=== PATIENT | female | born 1955 | race African-American/Black ===

== ENCOUNTER 2020-02-29 16:40 | Inpatient (IN) | payer MEDICARE, OTHER ==
[~2020-02-29] VITALS: Ht 167.6 cm; Wt 92.1 kg
--- NOTE | 2020-02-29 16:50 | NUR ---
suzi from [place] for generalized weakness, noted lethargy x today. Patient has eyes closed, open spontaneously, appears to be sleepy but she's verbally responsive. Breathing even and unlabored, no sob noted, placed on the monitor. Needs attended.
[2020-02-29] MEDS ORDERED: IV NS 0.9% 500 ML BAG IV ONE (17:00)
--- NOTE | 2020-02-29 17:00 | NUR ---
IV LINE ESTABLISHED, BLOOD DRAWN AND SENT TO LAB.
[2020-02-29] MEDS ORDERED: GABA300C PO (17:12)
[2020-02-29] MEDS ORDERED: ALBU18HF2 INH (17:12)
[2020-02-29] MEDS ORDERED: AMLO-61 PO (17:12)
[2020-02-29] MEDS ORDERED: FLUT1DIS3 INH (17:12)
[2020-02-29] MEDS ORDERED: PANT40TA49 PO (17:12)
[2020-02-29] MEDS ORDERED: HYDR-3972 PO (17:12)
[2020-02-29] MEDS ORDERED: INSU100I4 SQ (17:12)
[2020-02-29] MEDS ORDERED: CYCL10TA9 PO (17:12)
--- NOTE | 2020-02-29 17:15 | NUR ---
AMY FISHER AT [facility] FOR XRAY
[2020-02-29 17:29] LABS: BASOPHILS # (AUTO) 0.1 /CMM (0.0-0.2); BASOPHILS % (AUTO) 0.9 % (0.0-2.0); EOSINOPHILS % (AUTO) 3.4 % (0.0-6.0); HEMATOCRIT 40 % (33-45); HEMOGLOBIN 12.9 g/dL (11.5-14.8); LYMPHOCYTES # (AUTO) 3.2 /CMM (0.8-4.8); LYMPHOCYTES % (AUTO) 33.2 % (20.0-44.0); MEAN CORPUSCULAR HGB CONC 33 g/dl (31.0-36.0); MEAN CORPUSCULAR VOLUME 96 fL (82-100); MONOCYTES # (AUTO) 0.7 /CMM (0.1-1.30); MONOCYTES % (AUTO) 7.5 % (2.0-12.0); NEUTROPHILS # (AUTO) 5.3 /CMM (1.8-8.9); PLATELET COUNT (AUTO) 166 /CMM (150-450); RED BLOOD CELL COUNT(AUTO) 4.13 MIL/uL (4.0-5.2); WHITE BLOOD COUNT (AUTO) 9.6 K/uL (4.3-11.0)
[2020-02-29 17:37] LABS: CARBON DIOXIDE 25 mmol/L (21-32); CHLORIDE 102 mmol/L (98-107); GLUCOSE 135 mg/dL (74-106); POTASSIUM 3.9 mmol/L (3.5-5.1); SODIUM SERUM 137 mmol/L (136-145); UREA NITROGEN, BLOOD 30 mg/dL (7-18)
--- NOTE | 2020-02-29 18:15 | NUR ---
patient taken to radiology for ct.
[2020-02-29 18:21] LABS: THYROID STIMULATING HORMONE 0.507 uIU/mL (0.358-3.74)
[2020-02-29] MEDS ORDERED: IV NS 0.9% 1,000 ML IV ONE (18:30)
--- NOTE | 2020-02-29 18:49 | NUR ---
URINE SENT TO LAB.
--- NOTE | 2020-02-29 19:36 | NUR ---
[id number], RES# [id number] ETA TO FOLLOW
[2020-02-29] MEDS ORDERED: ACETAMINOPHEN 325 MG TABLET PO PRN (20:00)
--- NOTE | 2020-02-29 20:35 | NUR ---
DR. CARPENTER SPEAKING WITH SHIMON BRIGHT NP REGARDING ADMISSION
[2020-02-29 20:56] LABS: BILIRUBIN,URINE MODERATE (NEGATIVE); BLOOD, URINE Negative Ery/uL (NEGATIVE); COLOR,URINE YELLOW (YELLOW); LEUKOCYTE ESTERASE ,URINE Negative (NEGATIVE); NITRITE, URINE Negative (NEGATIVE); PROTEIN,URINE 100 mg/dl (NEGATIVE); UGLUCOSE Negative (NEGATIVE)
[2020-02-29] MEDS ORDERED: ONDANSETRON HCL/PF 4 MG/2 ML VIAL IVP PRN (21:00)
--- NOTE | 2020-02-29 21:49 | NUR ---
BED ASSIGNMENT 202
--- NOTE | 2020-02-29 21:52 | NUR ---
PATIENT UNABLE TO BE TAKEN UP TO ASSIGNED ROOM DUE TO STAFFING SHORTAGES, PER NURSING BOTTOM TURNER.
--- NOTE | 2020-02-29 22:06 | NUR ---
PATIENT IS AWAKE, AAOX4. NO SOB. BREATHING EVENLY AND UNLABORED ON ROOM AIR PT AGITATED, STATING, "DON'T TAKE MY PURSE FROM ME, GIMME BACK MY PURSE." NOTIFIED.
--- NOTE | 2020-02-29 22:14 | NUR ---
REPORT GIVEN TO ANDRES HOWARD FOR CLAIRE.
--- NOTE | 2020-02-29 22:25 | NUR ---
PATIENT IS AGITATED STATING, "GET THE FUCK AWAY FROM ME, I DO WHATEVER THE FUCK I WANT". REFUSED MEDICATION.
[2020-02-29] MEDS ORDERED: LORAZEPAM 1 MG TABLET PO ONE (22:30)
[2020-02-29] MEDS ORDERED: ALBUTEROL FS 2.5 MG/3 ML VIAL.NEB NEB PRN (22:30)
--- NOTE | 2020-02-29 22:35 | NUR ---
SHIMON BRIGHT AT BEDSIDE SPEAKING WITH PATIENT
[2020-02-29] MEDS ORDERED: LORAZEPAM INJ 2 MG/ML VIAL ONE (22:43)
[2020-02-29 22:45] LABS: BACTERIA,URINE Few /HPF (None Seen); RBC,URINE 0-2 /HPF (0-2); SQUAMOUS EPITHELIAL CELL,UR Rare /HPF (None Seen); WBC,URINE 0-2 /HPF (0-3)
[2020-02-29] MEDS ORDERED: LORAZEPAM INJ 2 MG/ML VIAL IV ONE (23:00)
--- NOTE | 2020-02-29 23:33 | NUR ---
LADY, FRIEND WANTS TO LEAVE PHONE NUMBER,
--- NOTE | 2020-02-29 23:55 | NUR ---
TELE/PMO PROJECT MANAGER NOTE Patient arrived at 2345 via gurney from ER. VS: BP 127/67 T97.8 P89 R18 [id number] Tele monitor reading sinus rhythm. Breathing even, clear, unlabored, on room air. No acute distress or SOB noted. No JVD. Tongue midline, no tracheal deviation. Mucous membranes moist, pink. PERRLA. CRP <3seconds. Brachial and pedal pulses 2+, symmetrical. Skin warm, pink, dry, intact. Abdomen large, round, soft, non-tender. BS active. Patient is incontinent. IV site L wrist 20g running NS @ 90ml/hr, no signs of redness or infiltration. Mild weakness noted in bilateral lower extremities. Able to moves toes, sensations intact. Bilateral upper extremities WNL. Machine Shop Helper strength 5+. Patient oriented to room. Admission documentation done. Bed in low position, wheels locked, side rails up x2, call light within reach.
[2020-03-01] VITALS: BP 127/67
[2020-03-01 01:56] VITALS: BP 127/67
[2020-03-01 04:00] VITALS: BP 156/94
[2020-03-01 06:39] LABS: BASOPHILS % (AUTO) 0.4 % (0.0-2.0); EOSINOPHILS % (AUTO) 2.4 % (0.0-6.0); HEMATOCRIT 37 % (33-45); HEMOGLOBIN 11.8 g/dL (11.5-14.8); LYMPHOCYTES # (AUTO) 2.2 /CMM (0.8-4.8); LYMPHOCYTES % (AUTO) 32.9 % (20.0-44.0); MEAN CORPUSCULAR HGB CONC 32 g/dl (31.0-36.0); MEAN CORPUSCULAR VOLUME 96 fL (82-100); MONOCYTES # (AUTO) 0.4 /CMM (0.1-1.30); MONOCYTES % (AUTO) 5.6 % (2.0-12.0); NEUTROPHILS % (AUTO) 58.7 % (43.0-81.0); PLATELET COUNT (AUTO) 126 /CMM (150-450); RED BLOOD CELL COUNT(AUTO) 3.85 MIL/uL (4.0-5.2); WHITE BLOOD COUNT (AUTO) 6.8 K/uL (4.3-11.0)
--- NOTE | 2020-03-01 06:41 | NUR ---
TELE/RN CLOSING NOTE Patient is A/O x3-4. Tele monitor reading sinus rhythm. Breathing even, clear, unlabored, on room air. No acute distress or SOB noted. Skin warm, pink, dry, intact. Patient is incontinent. IV site L wrist 20g running NS @ 90ml/hr, no signs of redness or infiltration. Mild weakness noted in bilateral lower extremities. Able to moves toes, sensations intact. Patient oriented to room. Bed in low position, wheels locked, side rails up x2, call light within reach.
[2020-03-01] MEDS ORDERED: IV NS 0.9% 1,000 ML IV PRN (07:00)
--- NOTE | 2020-03-01 07:40 | NUR ---
INDUSTRIAL AUTOMATION ENGINEER NOTES RECEIVED PT AWAKE, A/O X2-3, SITTING AT THE EDGE OF THE BED. PT CONCERNED OF GOING BACK HOME AND PT REFUSED TO HAVE THE TELEMONITORING EVEN RISK AND BENEFITS EXPLAINED. PT REFUSES HELP OR ANY ASSISTANCE WELL. PIV TO LAC G22 JUST PLACED BY HEAVY EQUIPMENT DIESEL MECHANIC, IVF NS RESUMED, FLUID INFUSING AND INTACT. PT KEP COMFORTABLE. PT'S BED KEPT LOW, LOCKED POSITION. WILL CONTINUE PLAN OF CARE.
[2020-03-01 07:48] LABS: C-REACTIVE PROTEIN 1.6 mg/dL (0.0-0.9)
--- NOTE | 2020-03-01 08:21 | NUR ---
RN NOTES PT REFUSES TO BE HELPED, REFUSED VITALS. INSISTING TO FIND HER SHOES SO SHE COULD GO HOME. PT PREFERS TO SLIDE HER SELF ON THE FLOOR TO GET AROUND THE BED AND LOOK ON HER SHOES. PT STILL INSIST TO REFUSE HELP AT THIS TIME.
--- NOTE | 2020-03-01 08:35 | NUR ---
RN NOTES NOTIFIED HOSPITALIST/CC REGARDING PT'S CURRENT BEHAVIOR. PT CRAWLING ON THE FLOOR, CURSING AT STAFFS AND INSISTING WANTS TO GO HOME.
[2020-03-01] MEDS ORDERED: LORAZEPAM INJ 2 MG/ML VIAL IM ONE (08:40)
[2020-03-01] MEDS: PANTOPRAZOLE 40 MG TABLET.DR PO SCH (09:00)
[2020-03-01] MEDS: APIXABAN 2.5 MG TABLET PO SCH ×2 (09:00→16:20)
--- NOTE | 2020-03-01 09:30 | NUR ---
RN NOTES PAGED DR. MARTÍNEZ FOR PSYCH EVAL.
[2020-03-01 10:33] LABS: ALANINE AMINOTRANSFERASE 25 U/L (12-78); ALBUMIN 2.8 g/dL (3.4-5.0); ALKALINE PHOSPHATASE 63 U/L (46-116); ASPARTATE AMINOTRANSFERASE 28 U/L (15-37); BILIRUBIN,TOTAL 0.2 mg/dL (0.2-1.0); CALCIUM, SERUM 8.7 mg/dL (8.5-10.1); CARBON DIOXIDE 23 mmol/L (21-32); CHLORIDE 104 mmol/L (98-107); CREATININE 1.5 mg/dL (0.6-1.3); GLUCOSE 217 mg/dL (74-106); MAGNESIUM 2.5 mg/dL (1.8-2.4); PHOSPHORUS 3.5 mg/dL (2.5-4.9); POTASSIUM 4.4 mmol/L (3.5-5.1); SODIUM SERUM 137 mmol/L (136-145); TOTAL PROTEIN, SERUM 7.6 g/dL (6.4-8.2); UREA NITROGEN, BLOOD 25 mg/dL (7-18)
[2020-03-01 10:39] LABS: CHOLESTEROL 145 mg/dL (<200); HDL CHOLESTEROL 57 mg/dL (40-60); LDL 76 mg/dL (0-99); TRIGLYCERIDES 67 mg/dL (30-150)
--- NOTE | 2020-03-01 10:58 | NUR ---
RN NOTES PT BANGING THE BATHROOM DOOR REPEATEDLY. AND THREW TRASH BIN TO STAFF MEMBER WHILE INSIDE HER ROOM.
--- NOTE | 2020-03-01 11:01 | NUR ---
RN NOTES RECEIVED CALL FROM CADEN FROM PSYCH. VERIFIED PT IS SUPPOSED TO BE SEEN BY DR. HARRISON YESTERDAY, BUT DR BILL IS COVERING TODAY. CADEN STATED SHE'LL FOLLOW UP WITH DR BILL FOR THIS PT.
[2020-03-01] MEDS ORDERED: DEXTROSE 50%-WATER 50 ML DISP.SYRIN IV PRN (11:30)
[2020-03-01] MEDS: BLOOD SUGAR DIAGNOSTIC 1 EACH STRIP IN SCH ×3 (12:07→22:00)
[2020-03-01] MEDS: INSULIN REGULAR, HUMAN 100 UNIT/ML 3 ML VIAL SQ PRN ×2 (12:08→16:36)
--- NOTE | 2020-03-01 12:41 | NUR ---
RN NOTES SEEN AND EVALUATED BY DR. MARTÍNEZ. ORDERS PLACED.
[2020-03-01] MEDS ORDERED: OLANZAPINE 10 MG VIAL IM ONE (13:00)
[2020-03-01] MEDS ORDERED: LORAZEPAM 1 MG TABLET PO PRN (13:00)
[2020-03-01] MEDS ORDERED: ALBUTEROL 17GM INHALER IH PRN (14:30)
[2020-03-01] MEDS: OLANZAPINE ZYDIS 5 MG TAB.RAPDIS PO SCH ×2 (15:00→16:18)
[2020-03-01] MEDS: GABAPENTIN 300 MG CAPSULE PO SCH ×2 (15:01→16:17)
--- NOTE | 2020-03-01 15:23 | NUR ---
RN NOTES RECEIVED CALL FROM PERSONAL YURI/EMI , INFORMED HEBER/YURI WELL TO CALL AND GET INFORMATION REGARDING PT WELL.
--- NOTE | 2020-03-01 17:48 | NUR ---
RN NOTES PT APPEARS CALM, BACK ON TELEMONITOR, SR WITH BBB, HR 85.
--- NOTE | 2020-03-01 19:48 | NUR ---
COMPUTER HELP DESK REPRESENTATIVE NOTES PT AWAKE, A/O X2-3, CALM, ASLEEP. TOLERATING RA, WITH NO ACUTE RESPIRATORY DISTRESS. ON TELEMONITORING SR 80. PIV TO LAC G22, IVF NS AT 50 ML/HR, FLUID INFUSING AND INTACT. NEEDS ATTENDED. PT KEPT COMFORTABLE. PT'S BED KEPT LOW, LOCKED POSITION. CALL LIGHT KEPT WITHIN REACH. ENDORSED TO SPEECH THERAPIST EARLY INTERVENTION.
--- NOTE | 2020-03-01 19:55 | NUR ---
HOSPITAL RECEIVING CLERK NOTES PT AWAKE, A/O X2-3, CALM, ASLEEP. TOLERATING RA, WITH NO ACUTE RESPIRATORY DISTRESS. ON TELEMONITORING SR 80s. PIV TO LAC G22, IVF NS AT 90 ML/HR, FLUID INFUSING AND INTACT. ALL NEEDS ANTICIPATED. KEPT COMFORTABLE. SAFETY MEASURES IN PLACED. PT'S BED KEPT LOW, LOCKED POSITION. CALL LIGHT KEPT WITHIN REACH. ASPIRATION PRECAUTION EMPHASIZED. WILL CONTINUE TO MONITOR ACCORDINGLY.
[2020-03-01 20:00] VITALS: BP 188/112
--- NOTE | 2020-03-01 22:30 | NUR ---
RN NOTES PATIENT REFUSED ACCU CHECK, PATIENT IS COMBATIVE, HITTING STAFF.
--- NOTE | 2020-03-01 22:39 | NUR ---
RN NOTES PATIENT IS RESTLESS, COMBATIVE, KICKING, SCREAMING, PULLING PERIPHERAL IV TUBING, HITTING STAFF. INFORMED KAILA ROWELL WITH ORDERS FOR BILATERAL SOFT WRIST RESTRAINTS, TO GIVE ATIVAN 2MG IV ONCE AND ATIVAN 1MG IV EVERY 8 HOURS PRN. ORDERS NOTED AND CARRIED OUT.
[2020-03-01] MEDS ORDERED: LORAZEPAM INJ 2 MG/ML VIAL IV PRN (23:00)
[2020-03-01] MEDS: IV NS 0.9% 1,000 ML IV PRN (23:04)
[2020-03-02 00:39] VITALS: BP 166/97
[2020-03-02 04:00] VITALS: BP 178/108
--- NOTE | 2020-03-02 06:18 | NUR ---
STAFF VETERINARIAN NOTES ALL NEEDS ATTENDED AND MET. ABLE TO REST AND SLEEP JUST NOW, AWAKE THROUGHOUT THE NIGHT, BILATERAL SOFT WRIST RESTRAINTS IN PLACE, CHECKED AND ASSESSED FOR ADEQUATE CIRCULATION, PERIPHERAL IV ACCESS INTACT AND PATENT, REPOSITIONED FOR COMFORT. SAFETY MEASURE EMPHASIZED. CALL LIGHT WITHIN EASY REACH. KEEP CLEAN WARM AND DRY, CALM AT THIS TIME. WILL ENDORSE TO AM NURSE FOR CONTINUITY OF CARE.
[2020-03-02 07:22] LABS: BASOPHILS % (AUTO) 0.8 % (0.0-2.0); EOSINOPHILS % (AUTO) 4.7 % (0.0-6.0); HEMATOCRIT 39 % (33-45); HEMOGLOBIN 12.5 g/dL (11.5-14.8); LYMPHOCYTES # (AUTO) 1.6 /CMM (0.8-4.8); MEAN CORPUSCULAR HGB CONC 33 g/dl (31.0-36.0); MEAN CORPUSCULAR VOLUME 95 fL (82-100); MONOCYTES # (AUTO) 0.5 /CMM (0.1-1.30); MONOCYTES % (AUTO) 10.4 % (2.0-12.0); NEUTROPHILS # (AUTO) 2.7 /CMM (1.8-8.9); NEUTROPHILS % (AUTO) 53.1 % (43.0-81.0); PLATELET COUNT (AUTO) 119 /CMM (150-450); RED BLOOD CELL COUNT(AUTO) 4.06 MIL/uL (4.0-5.2); WHITE BLOOD COUNT (AUTO) 5.1 K/uL (4.3-11.0)
[2020-03-02] MEDS: BLOOD SUGAR DIAGNOSTIC 1 EACH STRIP IN SCH ×4 (07:29→21:34)
[2020-03-02 08:00] VITALS: BP 168/99
--- NOTE | 2020-03-02 08:00 | NUR ---
RN Opening Note Received patient in bed, AO x 2 -3 confuse, able to responds all stimuli, does no appears pain or discomfort. Respiratory even and unlabored on room air, no distress or SOB observed. Skin is warm to touch keep clean/dry, intact IV site on left AC g 22 running NS at 75ml/hr, pt is on bilateral soft restraint for safety. Kept locked bed with elevated HOB for ensure airway and aspiration precaution and lowest position for safety. Call light within reach, will continue to monitor.
[2020-03-02] MEDS: PANTOPRAZOLE 40 MG TABLET.DR PO SCH (08:07)
[2020-03-02] MEDS: GABAPENTIN 300 MG CAPSULE PO SCH ×3 (08:07→16:57)
[2020-03-02] MEDS: OLANZAPINE ZYDIS 5 MG TAB.RAPDIS PO SCH ×3 (08:07→16:57)
[2020-03-02 08:08] LABS: ALANINE AMINOTRANSFERASE 29 U/L (12-78); ALBUMIN 3.1 g/dL (3.4-5.0); ALKALINE PHOSPHATASE 67 U/L (46-116); ASPARTATE AMINOTRANSFERASE 34 U/L (15-37); BILIRUBIN,TOTAL 0.3 mg/dL (0.2-1.0); CALCIUM, SERUM 9.2 mg/dL (8.5-10.1); CARBON DIOXIDE 24 mmol/L (21-32); CHLORIDE 104 mmol/L (98-107); GLUCOSE 216 mg/dL (74-106); MAGNESIUM 2.1 mg/dL (1.8-2.4); PHOSPHORUS 2.3 mg/dL (2.5-4.9); POTASSIUM 4.7 mmol/L (3.5-5.1); SODIUM SERUM 137 mmol/L (136-145); TOTAL PROTEIN, SERUM 8.2 g/dL (6.4-8.2); UREA NITROGEN, BLOOD 15 mg/dL (7-18)
[2020-03-02] MEDS: APIXABAN 2.5 MG TABLET PO SCH ×2 (08:09→17:20)
[2020-03-02] MEDS: LORAZEPAM INJ 2 MG/ML VIAL IV PRN ×2 (10:33→23:47)
[2020-03-02] MEDS: IV NS 0.9% 1,000 ML IV PRN ×2 (12:09→23:18)
[2020-03-02] MEDS: AMLODIPINE BESYLATE 5 MG TABLET PO SCH (13:25)
[2020-03-02] MEDS: BENAZEPRIL HCL 20 MG TABLET PO SCH (13:25)
[2020-03-02] MEDS ORDERED: LORAZEPAM INJ 2 MG/ML VIAL IM ONE (13:30)
[2020-03-02] MEDS ORDERED: OLANZAPINE 10 MG VIAL IM ONE (13:30)
[2020-03-02] MEDS ORDERED: K PHOS NEUTRAL 250 MG TABLET PO ONE (16:00)
[2020-03-02] MEDS: INSULIN REGULAR, HUMAN 100 UNIT/ML 3 ML VIAL SQ PRN ×2 (17:00→21:52)
--- NOTE | 2020-03-02 18:00 | NUR ---
Patient notated bp 180/91 HR 92, received new order Hydralazine 10 mg po q 6. Noted and carry out.
[2020-03-02] MEDS ORDERED: hydrALAZINE HCL 10 MG TABLET PO PRN (18:30)
--- NOTE | 2020-03-02 18:30 | NUR ---
RN Closing note Patient in bed resting, noticed confuse and noticed attempted out of bed, still on restraint. Pt does no appears discomfort, skin is warm to touch keep clean/dry. Respiratory even and unlabored on room air O2sat 95%, no sob or distress observed. Kept locked bed and elevated HOB for ensure airway and aspiration precaution, and lowest position for safety, bed alarm is on at all the times, call light within reach, will endorse night filler.
--- NOTE | 2020-03-02 19:30 | NUR ---
RN NOTES: RECEIVED ENDORSEMENT FROM MORNING SHIFT,ALL PERTINENT INFORMATION ACKNOWLEDGE,WILL CONTINUE TO MONITOR AND ASSESS THROUGHOUT THE SHIFT AND WILL CARRY OUT ANY MD ORDER SCHEDULED. -AT 1999 REPORT GIVEN TO KIMMY/ANITA FOR CLAIRE; RELAY ASSOCIATE MADE AWARE.
--- NOTE | 2020-03-02 19:30 | NUR ---
RN OPENING NOTES Received patient asleep, A/O x3. On RA, no respiratory distress noted, saturating well. No s/sx of discomfort noted. On fall and aspiration precautions noted. With bilateral soft wrist restraints, no s/sx of injury noted. Kept on bed clean, dry and comfortable. Will continue to monitor accordingly.
[2020-03-02 20:00] VITALS: BP 160/89
[2020-03-02] MEDS: DOXYCYCLINE HYCLATE (100 MG) 100 MG TABLET PO SCH (21:34)
[2020-03-03] VITALS: BP 173/99
[2020-03-03 04:00] VITALS: BP 152/85
[2020-03-03] MEDS: LORAZEPAM INJ 2 MG/ML VIAL IV PRN (06:05)
[2020-03-03 06:16] LABS: BASOPHILS % (AUTO) 0.7 % (0.0-2.0); EOSINOPHILS % (AUTO) 4.6 % (0.0-6.0); HEMATOCRIT 37 % (33-45); HEMOGLOBIN 12.1 g/dL (11.5-14.8); LYMPHOCYTES # (AUTO) 1.7 /CMM (0.8-4.8); LYMPHOCYTES % (AUTO) 27.4 % (20.0-44.0); MEAN CORPUSCULAR HGB CONC 33 g/dl (31.0-36.0); MEAN CORPUSCULAR VOLUME 95 fL (82-100); MONOCYTES # (AUTO) 0.6 /CMM (0.1-1.30); MONOCYTES % (AUTO) 9.1 % (2.0-12.0); NEUTROPHILS # (AUTO) 3.5 /CMM (1.8-8.9); NEUTROPHILS % (AUTO) 58.2 % (43.0-81.0); PLATELET COUNT (AUTO) 124 /CMM (150-450); RED BLOOD CELL COUNT(AUTO) 3.92 MIL/uL (4.0-5.2); WHITE BLOOD COUNT (AUTO) 6.1 K/uL (4.3-11.0)
[2020-03-03 06:18] LABS: CALCIUM, SERUM 8.6 mg/dL (8.5-10.1); CREATININE 0.9 mg/dL (0.6-1.3); MAGNESIUM 1.7 mg/dL (1.8-2.4); PHOSPHORUS 2.7 mg/dL (2.5-4.9); POTASSIUM 4.3 mmol/L (3.5-5.1)
[2020-03-03] MEDS: INSULIN REGULAR, HUMAN 100 UNIT/ML 3 ML VIAL SQ PRN ×4 (06:20→21:28)
--- NOTE | 2020-03-03 07:15 | NUR ---
RN CLOSING NOTES Pt on bed comfortable no new complaints made. Medicated for agitation/combative, noted effective. Kept on bed clean, dry and comfortable. On fall and aspiration precautions. Endorsed.
--- NOTE | 2020-03-03 07:30 | NUR ---
NAVIGATION TEACHER NOTES PT IN BED, RESTING, ALERT AND VERBALLY RESPONSIVE, NO SIGN OF PAIN, NOT IN DISTRESS, TOLERATING ROOM AIR, WITH EPISODES OF CONFUSION, OCCASIONAL YELLING, NEEDS ATTENDED, ASSISTED WITH MEALS, SAFETY PRECAUTIONS OBSERVED.
[2020-03-03] MEDS: BLOOD SUGAR DIAGNOSTIC 1 EACH STRIP IN SCH ×4 (07:33→21:26)
[2020-03-03 08:00] VITALS: BP 172/101
[2020-03-03] MEDS: GABAPENTIN 300 MG CAPSULE PO SCH ×3 (08:18→16:09)
[2020-03-03] MEDS: DOXYCYCLINE HYCLATE (100 MG) 100 MG TABLET PO SCH ×2 (08:18→21:10)
[2020-03-03] MEDS: BENAZEPRIL HCL 20 MG TABLET PO SCH (08:19)
[2020-03-03] MEDS: AMLODIPINE BESYLATE 5 MG TABLET PO SCH (08:19)
[2020-03-03] MEDS: OLANZAPINE ZYDIS 5 MG TAB.RAPDIS PO SCH ×3 (08:20→16:09)
[2020-03-03] MEDS: PANTOPRAZOLE 40 MG TABLET.DR PO SCH (08:20)
[2020-03-03] MEDS: APIXABAN 2.5 MG TABLET PO SCH ×2 (08:21→16:11)
[2020-03-03] MEDS: Magnesium 1GM/D5W 100ML PREMIX 100 ML IV SCH ×2 (11:19→12:28)
[2020-03-03] MEDS: NITROGLYCERIN 30 GM TUBE TP SCH ×2 (11:40→21:11)
[2020-03-03] MEDS: hydrALAZINE HCL 50 MG TABLET PO SCH ×3 (11:40→17:00)
[2020-03-03 12:00] VITALS: BP 158/100
--- NOTE | 2020-03-03 13:00 | NUR ---
STOCK PARTS INSPECTOR NOTES PT IN BED, RESTING, ALERT TO SELF, VERBALLY RESPONSIVE, NOT IN DISTRESS, TOLERATES ROOM AIR, WITH EPISODES OF CONFUSION AND YELLING, PT STILL TRYING TO PULL OUT IV LINES AND TUBES, SAFETY PRECAUTIONS OBSERVED.
[2020-03-03] MEDS ORDERED: LORAZEPAM INJ 2 MG/ML VIAL IM PRN (15:30)
[2020-03-03 16:00] VITALS: BP 126/99
--- NOTE | 2020-03-03 18:43 | NUR ---
MICROSOFT DYNAMICS AX CONSULTANT NOTES PT IN BED, AWAKE, ALERT TO SELF, WITH CONFUSION, WITH EPISODES OF YELLING AND MUMBLING TO SELF, SEEN BY DR. MENDES, IV ACCESS INFILTRATED, PT REFUSED IV REINSERTION AND TELE BOX MONITORING, DR. MENDES INFORMED, PM MEDS GIVEN ORDERED, ASSISTED WITH DINNER, SAFETY PRECAUTIONS OBSERVED.
--- NOTE | 2020-03-03 19:30 | NUR ---
BEEKEEPER FARMER OPENING NOTE RECEIVED PATIENT ON ISOLATION TO R/O COVID19. PATIENT IN BED. A/O 2, CONFUSED. TOLERATING ROOM AIR. RESPIRATIONS ARE EVEN AND UNLABORED. NO S/S SOB NOTED. NO C/O PAIN AT THIS TIME. EXTERNAL TELE MONITOR READS SINUS TACHY HR 111. IN NO APPARENT DISTRESS. NO IV ACCESS, MD AWARE PER DAY RN. PATIENT IS ON BILATERAL SOFT WRIST RESTRAINTS, 2 FINGER BREATHS OF ROOM BETWEEN SKIN AND RESTRAINT, NO REDNESS. BED IS LOW AND LOCKED, HOB ELEVATED IN SEMI FOWLERS, SIDE RAILS UP X2, CALL LIGHT WITHIN REACH. WILL CONTINUE TO MONITOR.
[2020-03-03 20:00] VITALS: BP 168/96
--- NOTE | 2020-03-03 20:43 | NUR ---
PUMP ERECTOR HELPER NOTE INFORMED DR. SHIMON BRIGHT THAT PATIENT HAS TEMP 99 BUT NO TYLENOL ON MEDICATION LIST. MD TELEPHONE ORDER TYLENOL 650MG Q4HR PRN. ORDER READ BACK, NOTED AND CARRIED OUT. WILL CONTINUE TO MONITOR.
[2020-03-03] MEDS ORDERED: ACETAMINOPHEN 325 MG TABLET PO PRN (21:00)
--- NOTE | 2020-03-03 21:31 | NUR ---
telephone solicitor note administered prn tylenol 650mg for temp 99.0. will continue to monitor.
[2020-03-04] VITALS: BP 150/62
[2020-03-04 04:00] VITALS: BP_SYST 169; BP_SYST 174; BP_DIAS 86; BP_DIAS 94
--- NOTE | 2020-03-04 04:30 | NUR ---
PURIFICATION OPERATOR HELPER NOTE TRIED TO OBTAIN ORTHOSTATIC VITALS, WAS ABLE TO OBTAIN SITTING AND LAYING VITAL SIGNS, PATIENT DID NOT WANT TO STAND. INSERTED ON VITALS SIGN FLOW SHEET.
--- NOTE | 2020-03-04 04:54 | NUR ---
telephoto installer note informed dr. jordana lundy that patients bp is 174/94 hr 98 laying down, 169/86 hr 108 when sitting. patient is already on Apresoline 100mg TIB and nitro ointment q12 hrs. telephone ordered clonidine 0.1mg q8hr prn po, systolic bp greater than 160. order read back, noted and carried out.
[2020-03-04] MEDS ORDERED: CLONIDINE HCL 0.1 MG TABLET PO PRN (05:00)
[2020-03-04] MEDS: BLOOD SUGAR DIAGNOSTIC 1 EACH STRIP IN SCH (06:10)
[2020-03-04] MEDS: INSULIN REGULAR, HUMAN 100 UNIT/ML 3 ML VIAL SQ PRN ×2 (06:20→17:32)
--- NOTE | 2020-03-04 06:32 | NUR ---
MEDICAL OFFICE TECHNOLOGIST CLOSING NOTE ON ISOLATION TO R/O COVID19. RESTING IN BED. A/OX2, PERIODS OF CONFUSION. TOLERATING ROOM AIR.NO RESP DISTRESS NOTED. NO C/O PAIN THROUGHOUT SHIFT. MANAGED SLIGHT TEMP WITH TYLENOL. TEMP NOW IS 98.4. EXTERNAL TELE MONITOR READS SINUS TACHY HR 109. NO DISTRESS. NO IV ACCESS. PATIENT REMAINS ON BILATERAL SOFT WRIST RESTRAINTS, GOOD CAP REFILL, NO REDNESS NOTED. BED REMAINS LOW AND LOCKED, HOB ELEVATED IN SEMI FOWLERS, SIDE RAILS UP X3, CALL LIGHT WITHIN REACH. WILL ENDORSE TO NEXT SHIFT.
--- NOTE | 2020-03-04 07:35 | NUR ---
GLOBAL IMPLEMENTATION MANAGER NOTES PATIENT RECEIVED IN BED, ALERT AND ORIENTED X 2, ON ROOM AIR WITH NO SIGNS OF RESPIRATORY DISTRESS WITH EVEN NON-LABORED BREATHING, AND NO SOB NOTED. PATIENT ON TITLE I MATH TUTOR. SINUS TACH, 120. PATIENT PRESENTING WITH NO PAIN OR DISCOMFORT AT THIS TIME. NO IV ACCESS, MD MADE AWARE STATED BY NIGHTSHIFT. PATIENT HAS BILATERAL SOFT WRIST RESTRAINTS IN PLACE WITH ADEQUATE CIRCULATION, VISUAL CHECKS DONE Q 15 MINS. PATIENT PRESENTING WITH NO PAIN OR DISCOMFORT AT THIS TIME. ISOLATION PRECAUTIONS REMAINING, DUE TO COVID-19. SAFETY PRECAUTIONS IMPLEMENTED WITH BED LOCKED, BED IN THE LOWEST POSITION, BED ALARM ON, BILATERAL SIDE RAILS UP AND CALL LIGHT WITHIN EASY REACH OF THE PATIENT. WILL CONTINUE TO MONITOR PATIENT.
[2020-03-04 08:00] VITALS: BP 128/82
[2020-03-04] MEDS: DOXYCYCLINE HYCLATE (100 MG) 100 MG TABLET PO SCH ×2 (08:45→21:00)
[2020-03-04] MEDS: GABAPENTIN 300 MG CAPSULE PO SCH ×3 (08:45→17:18)
[2020-03-04] MEDS: OLANZAPINE ZYDIS 5 MG TAB.RAPDIS PO SCH ×3 (08:45→17:18)
[2020-03-04] MEDS: PANTOPRAZOLE 40 MG TABLET.DR PO SCH (08:46)
[2020-03-04] MEDS: NITROGLYCERIN 30 GM TUBE TP SCH ×2 (08:47→21:00)
[2020-03-04] MEDS: APIXABAN 2.5 MG TABLET PO SCH ×2 (08:48→17:19)
[2020-03-04] MEDS: AMLODIPINE BESYLATE 5 MG TABLET PO SCH (08:48)
[2020-03-04] MEDS: BENAZEPRIL HCL 20 MG TABLET PO SCH (10:11)
[2020-03-04] MEDS: hydrALAZINE HCL 50 MG TABLET PO SCH ×3 (10:12→17:00)
--- NOTE | 2020-03-04 11:30 | NUR ---
SALES MANAGER NOTES PATIENT REFUSED AM LAB DRAW, INFORMED JING MENDES, HOSPITALIST. WILL CONTINUE TO MONITOR PATIENT.
--- NOTE | 2020-03-04 12:00 | NUR ---
INSOLE AND HEEL STIFFENER NOTES TRANSFERRED PATIENT TO [address] [place] [address] ROOM 322-1. PATIENT ON ROOM AIR WITH NO SIGNS OF RESPIRATORY DISTRESS WITH EVEN NON-LABORED BREATHING. PATIENT PRESENTING WITH NO PAIN OR DISCOMFORT AT THIS TIME. TRANSFERRED PATIENT VIA ACLS PROTOCOL, VIA BED. ENDORSED TO RN FOR CONTINUATION OF PLAN OF CARE.
--- NOTE | 2020-03-04 12:00 | NUR ---
RN OPENING NOTE THE PATIENT IS RECEIVED ON A BED FROM MS2. PATIENT IS ALERT AND ORIENTED X2. DENIES PAIN. IN ROOM AIR AND DENIES SOB. RESPIRATION REGULAR AND UNLABORED. TELE BOX READING IS SINUS TACHYCARDIA 130. THE PATIENT DENIES ANY DISTRESS. PATIENT WITH NO IV ACCESS AND PER REPORTING NURSE FREDY ROWELL IS AWARE. PROVIDED ORIENTATION TO THE ROOM/UNIT AND THE PATIENT VERBALIZED UNDERSTANDING. BED LOW AND LOCKED. SIDE RAILS UP X3. CALL LIGHT WITHIN REACH. WILL CONTINUE TO MONITOR.
[2020-03-04] MEDS ORDERED: DEXTROSE 50%-WATER 50 ML DISP.SYRIN IV PRN (12:30)
[2020-03-04] MEDS ORDERED: *INSULIN REGULAR(HUMULIN R)HUM 100 UNIT/ML VIAL SQ PRN (12:30)
[2020-03-04] MEDS: METOPROLOL TARTRATE 50 MG TABLET PO SCH ×2 (13:34→17:36)
--- NOTE | 2020-03-04 15:02 | NUR ---
RN DISCONTINUED RESTRAINS ASSESSED THE PATIENT AND NOTED THAT THERE IS NO NEED FOR RESTRAINS. YING MENDES IS MADE AWARE AND RECEIVED AN ORDER TO DISCONTINUE BILATERAL SOFT-WRIST RESTRAINS. THE ORDER IS NOTED AND CARRIED OUT.
[2020-03-04 17:00] VITALS: BP 106/57
--- NOTE | 2020-03-04 17:11 | NUR ---
RN ELEVATED BLOOD SUGAR BLOOD SUGAR CHECK DONE AND NOTED BLOOD SUGAR OF 407. PER POLICY REJECTED IN ORDER TO RECHECK.
--- NOTE | 2020-03-04 17:28 | NUR ---
RN BLOOD SUGAR BLOOD SUGAR RECHECK DONE AT 1728 BECAUSE THE PATIENT WAS REFUSING PRIOR 1728. SO. BLOOD SUGAR AR 1728 NOTED TO BE 404 AND GAVE 15 UNITS REGULAR INSULIN PER ORDER AND CONTACTED EVANGELISTA MENDES.
[2020-03-04] MEDS ORDERED: ENOXAPARIN SODIUM 40 MG/0.4 ML DISP.SYRIN SQ SCH (17:30)
[2020-03-04] MEDS: BLOOD SUGAR DIAGNOSTIC 1 EACH STRIP VI SCH ×2 (17:32→21:08)
--- NOTE | 2020-03-04 17:49 | NUR ---
RN BLOOD SUGAR 1749 BLOOD SUGAR 392 AFTER GIVING 15 UNITS OF REGULAR INSULIN. RECEIVED A CALL FROM LAB REPORTING BLOOD GLUCOSE LEVEL OF 442. EVANGELISTA MENDES IS MADE AWARE. X RAY TECH PLACED A NEW ORDER OF METFORMIN. WILL ADMINISTER THE MEDICATION PER ORDER. THE PATIENT IN NO APPARENT DISTRESS.
[2020-03-04 18:00] LABS: CALCIUM, SERUM 8.6 mg/dL (8.5-10.1); CREATININE 1.1 mg/dL (0.6-1.3); MAGNESIUM 1.9 mg/dL (1.8-2.4); POTASSIUM 4.6 mmol/L (3.5-5.1)
[2020-03-04] MEDS: METFORMIN 500 MG TABLET PO SCH (18:15)
--- NOTE | 2020-03-04 18:47 | NUR ---
RN DISCONTINUED LOVENOX DNP CINTHYA IS MADE AWARE THAT THE PATIENT IS ALREADY ON ELIQUIS 2.5 MG BID AND SHE PLACED ANOTHER ORDER OF LOVENOX 40 MG SB TO START TONIGHT. RECEIVED AN ORDER TO DISCONTINUE LOVENOX 40 MG SB. THE ORDER IS READ BACK, VERIFIED. NOTED AND CARRIED OUT.
--- NOTE | 2020-03-04 18:49 | NUR ---
RN NOTE THE PATIENT IS ALERT AND ORIENTED X2. IN ROOM AIR AND OXYGEN SATURATION IS AT 95%. DENIES SOB. RESPIRATION REGULAR AND UNLABORED. DENIES PAIN. BED LOW AND LOCKED. SIDE RAILS UP X3. CALL LIGHT WITHIN REACH. WILL ENDORSE TO SERVICE STATION HELPER.
--- NOTE | 2020-03-04 19:40 | NUR ---
ACETONE BUTTON PASTER OPENING NOTES RECEIVED PATIENT RESTING IN BED COMFORTABLY; SLEEPING BUT EASILY AROUSABLE; PATIENT A/OX2; BREATHING EVEN AND UNLABORED; TOLERATING ROOM AIR WELL; NO SOB NOTED; NO DISTRESS NOTED; TELE MONITOR CURRENTLY OFF, PATIENT HAS BEEN REFUSING TELE MONITOR, PER DAY SHIFT, PATIENT HAS BEEN REFUSING SINCE LAST NIGHT; HAS BEEN ON AND OFF WITH COMPLIANCE; CHARGE NURSE AWARE; NO IV ACCESS, MD AWARE; PATIENT REFUSING IV ACCESS; SAFETY PRECAUTIONS IMPLEMENTED; BED LOCKED IN LOW POSITION; SIDE RAILSX2; CALL LIGHT WITHIN REACH; WILL CONT TO MONITOR
--- NOTE | 2020-03-04 20:00 | NUR ---
AIRCRAFT LOG CLERK NOTES PATIENT REFUSING VITAL SIGNS TO BE OBTAINED; CHARGE NURSE AWARE; WILL CONT TO MONITOR
--- NOTE | 2020-03-04 20:26 | NUR ---
NUCLEAR WEAPONS MECHANICAL SPECIALIST NOTES PATIENT REFUSING TO REMOVE BRA FOR ECHOCARDIOGRAM AT BEDSIDE; PATIENT REPORTED SHE WOULD JUST LIKE TO GO TO SLEEP; PATIENT AGREED FOR ECHOCARDIOGRAM IN MORNING; CHARGE NURSE AWARE; WILL CONT TO MONITOR
--- NOTE | 2020-03-04 21:03 | NUR ---
ASSET PROTECTION SPECIALIST NOTES PATIENT STILL REFUSING TELE MONITOR, PATIENT YELLED AND REPORTED SHE JUST WANTS TO SLEEP; PATIENT ALSO REFUSING SCHEDULED MEDICATION; PATIENT EDUCATED ON RISKS/BENEFITS; PATIENT EDUCATED ON MED COMPLIANCE THROUGHOUT HOSPITAL STAY; PATIENT STILL REFUSING; CHARGE NURSE AWARE; WILL CONT TO MONITOR
[2020-03-05] VITALS: BP 115/66
[2020-03-05] MEDS: METOPROLOL TARTRATE 50 MG TABLET PO SCH ×4 (00:48→12:51)
[2020-03-05 06:16] LABS: BASOPHILS # (AUTO) 0.1 /CMM (0.0-0.2); EOSINOPHILS % (AUTO) 3.1 % (0.0-6.0); HEMATOCRIT 42 % (33-45); HEMOGLOBIN 13.7 g/dL (11.5-14.8); LYMPHOCYTES # (AUTO) 2.7 /CMM (0.8-4.8); LYMPHOCYTES % (AUTO) 28.9 % (20.0-44.0); MEAN CORPUSCULAR HGB CONC 32 g/dl (31.0-36.0); MEAN CORPUSCULAR VOLUME 96 fL (82-100); MONOCYTES # (AUTO) 0.8 /CMM (0.1-1.30); MONOCYTES % (AUTO) 8.6 % (2.0-12.0); NEUTROPHILS # (AUTO) 5.4 /CMM (1.8-8.9); NEUTROPHILS % (AUTO) 58.4 % (43.0-81.0); PLATELET COUNT (AUTO) 135 /CMM (150-450); RED BLOOD CELL COUNT(AUTO) 4.39 MIL/uL (4.0-5.2); WHITE BLOOD COUNT (AUTO) 9.2 K/uL (4.3-11.0)
[2020-03-05 06:30] LABS: CALCIUM, SERUM 9.1 mg/dL (8.5-10.1); CREATININE 1.2 mg/dL (0.6-1.3); PHOSPHORUS 3.5 mg/dL (2.5-4.9); POTASSIUM 4.4 mmol/L (3.5-5.1)
[2020-03-05] MEDS: BLOOD SUGAR DIAGNOSTIC 1 EACH STRIP VI SCH ×2 (06:31→12:48)
[2020-03-05] MEDS: INSULIN REGULAR, HUMAN 100 UNIT/ML 3 ML VIAL SQ PRN ×2 (06:31→12:50)
--- NOTE | 2020-03-05 06:36 | NUR ---
STUDENT UNION CONSULTANT CLOSING NOTES PATIENT RESTING IN BED COMFORTABLY; SLEEPING BUT EASILY AROUSABLE; BREATHING EVEN AND UNLABORED; NO SOB NOTED; TOLERATING ROOM AIR WELL; NO DISTRESS NOTED; PATIENT NON-COMPLIANT THROUGHOUT SHIFT; PATIENT REFUSING SCHEDULED MEDICATIONS/PROCEDURES; PATIENT ALSO REFUSED VITAL SIGNS; CHARGE NURSE AWARE; WILL INFORM DAY SHIFT; NO IV ACCESS, PATIENT REFUSING; MD AWARE; ALL NEEDS RENDERED; SAFETY PRECAUTIONS IMPLEMEMNTED; BED LOCKED IN LOW POSITION; SIDE RAILSX2; CALL LIGHT WITHIN REACH; WILL ENDORSE CLAIRE TO ONCOMING SHIFT PATIENT COMPLIANT WITH TREATMENT/MEDICATION REGIME SOMETIMES;
--- NOTE | 2020-03-05 07:30 | NUR ---
TELE/RN OPENING NOTE Received patient resting in bed, A&O x 2, confused. Denies any pain/discomfort at this time. Breathing even and non-labored on RA, no SOB noted. No cardiac distress noted. Explained the importance, risks, and benefits of being on the tele monitor, but patient refuses and states "I don't need it." No IV access noted, told patient that I will need to insert one later and explained its importance, but patient states "I will see, depends on my mood." Reinforced its risks and benefits. Sensation from all peripheral extremities intact. Bed locked to its lowest position, side rails x 2 up, call light in hand. Will continue with current medical management. Addendum: 03/05/20 at 0755 by CAM FRANCES RN Agreed to tele monitor, on tele monitor SR 74
[2020-03-05 08:00] VITALS: BP 123/81
[2020-03-05] MEDS: BENAZEPRIL HCL 20 MG TABLET PO SCH (08:27)
[2020-03-05] MEDS: DOXYCYCLINE HYCLATE (100 MG) 100 MG TABLET PO SCH (08:28)
[2020-03-05] MEDS: PANTOPRAZOLE 40 MG TABLET.DR PO SCH (08:28)
[2020-03-05] MEDS: METFORMIN 500 MG TABLET PO SCH (08:28)
[2020-03-05] MEDS: OLANZAPINE ZYDIS 5 MG TAB.RAPDIS PO SCH ×2 (08:28→12:51)
[2020-03-05] MEDS: GABAPENTIN 300 MG CAPSULE PO SCH ×2 (08:28→12:51)
[2020-03-05] MEDS: APIXABAN 2.5 MG TABLET PO SCH (08:29)
[2020-03-05] MEDS: NITROGLYCERIN 30 GM TUBE TP SCH (08:30)
[2020-03-05] MEDS: hydrALAZINE HCL 50 MG TABLET PO SCH ×2 (08:30→12:52)
[2020-03-05] MEDS ORDERED: AMLODIPINE BESYLATE 5 MG TABLET PO SCH (09:00)
[2020-03-05] MEDS ORDERED: AMLODIPINE BESYLATE 10 MG TABLET PO SCH (09:00)
--- NOTE | 2020-03-05 09:00 | NUR ---
TELE/RN NOTE Patient took off tele leads, refuses to put them back on, and states "I am leaving, there's no point of putting them back in. I want to go home." Explained the importance, risks, and benefits of telemetry monitoring, but patient insists on refusal.
--- NOTE | 2020-03-05 09:30 | NUR ---
TELE/RN NOTE Dr. Miramontes at bedside, ordered for patient to continue olanzapine 5 mg PO TID upon discharge and to follow up psych outpatient. Notified EVANGELISTA Cruz, states that he will add it on the prescription pad for discharge.
--- NOTE | 2020-03-05 09:45 | NUR ---
TELE/RN NOTE Patient refusing PT, explained the importance of PT eval and being able to get discharged when it gets done, patient yells "I do not care, you do not tell me what to do." Attempted to redirect and reorient, but patient insists on refusal. Will continue to monitor.
--- NOTE | 2020-03-05 10:30 | NUR ---
TELE/RN NOTE Called [facility], spoke with [facility], asked if patient can be picked up by them or a family member, states they aren't able to diamond picker patient. Notified CM.
--- NOTE | 2020-03-05 10:35 | NUR ---
TELE/RN NOTE [facility] called back, states patient will be picked up by Arnold Reyes (patient's son) [phone], but with no definite time because son is working. Told the patient about being picked up by son, but insists that she gets picked up GILBERTO, patient is yelling and is agitated by the fact that her son will take a while to pick her up. Notified Charge nurse and rifle case repairer.
--- NOTE | 2020-03-05 10:40 | NUR ---
TELE/RN NOTE Patient repeatedly yelled "I want to go home, I will crawl if I have to." Patient attempted to get out of bed. CNAs and charge nurse prevented patient from crawling out of bed. No fall or injury occurred. Patient reoriented and was known that her pickling machine operator time is at 1300. Will continue to monitor patient closely.
--- NOTE | 2020-03-05 10:45 | NUR ---
TELE/RN NOTE nurse unit manager was able to arrange patient's orange picking supervisor at 1300 by ambulance. Notified son Arnold Reyes, told him he does not have to worry about picking patient up since case management was able to arrange transportation for her. Son verbalizes understanding and states satisfaction of service.
[2020-03-05 12:52] VITALS: BP 128/71
--- NOTE | 2020-03-05 13:15 | NUR ---
TELE/SOCIAL MEDIA SR STRATEGY MANAGER NOTE Patient picked up by ambulance at 1315, remained stable throughout shift, no acute distress noted. Denies any pain/discomfort at this time. Breathing even and non-labored on RA, no SOB noted. No cardiac distress noted. Tele leads removed from patient, skin on chest remains intact, no irritation noted. No IV access noted. No new skin impairments noted, skin remained intact and dry. Sensation from all peripheral extremities intact. Educated patient and Cindy from [facility] regarding patient's discharge instructions, answered all their questions to their satisfaction, both verbalized understanding. Patient left facility safely with all belongings and hospital documents.
== END 2020-03-05 13:25 | disposition home health service (06) | DRG 682 ==
LOC: ER 16:45 → TELE2 21:50 → TELE 03-04 11:59
PROVIDERS: ADMIT Nurse Practitioner Acute Care; ATTEND Nurse Practitioner Acute Care
DX: N17.0 Acute kidney failure with tubular necrosis (principal); J15.9 Unspecified bacterial pneumonia; G92 Toxic encephalopathy; G89.29 Other chronic pain; I25.10 Atherosclerotic heart disease of native coronary artery without angina pectoris; J44.9 Chronic obstructive pulmonary disease, unspecified; E83.42 Hypomagnesemia; Z79.4 Long term (current) use of insulin; Z91.19 Patient's noncompliance with other medical treatment and regimen; R55 Syncope and collapse; I12.9 Hypertensive chronic kidney disease with stage 1 through stage 4 chronic kidney disease, or unspecified chronic kidney disease; N18.9 Chronic kidney disease, unspecified; E11.22 Type 2 diabetes mellitus with diabetic chronic kidney disease; E11.21 Type 2 diabetes mellitus with diabetic nephropathy; J84.10 Pulmonary fibrosis, unspecified; E11.319 Type 2 diabetes mellitus with unspecified diabetic retinopathy without macular edema; M48.00 Spinal stenosis, site unspecified; E11.65 Type 2 diabetes mellitus with hyperglycemia; F29 Unspecified psychosis not due to a substance or known physiological condition
CPT/HCPCS: 36415; 70450-TC; 71045-TC; 76700-TC; 80048-TC; 80053-TC; 80061-TC; 81001; 82728-TC; 82962-TC; 83605-TC; 83615-TC; 83735-TC; 84100-TC; 84439-TC; 84443-TC; 84484-TC; 85025-TC; 85378-TC; 86140-TC; 87081-TC; 93307-TC; G0378; G0480; J1815; J2060; J3475; J3490; J7030; J7040; U0003